=== PATIENT | female | born 1985 | race African-American/Black ===

== ENCOUNTER 2022-12-19 08:50 | Emergency (ER) | payer SELFPAY ==
[2022-12-19 09:05] VITALS: BP 124/82; PULSE 71; RESP 18; TEMP 98.6; BMI 26.6
[2022-12-19] MEDS ORDERED: ACETAMINOPHEN 325 MG TABLET (FP) PO ONE (10:32)
[2022-12-19] MEDS ORDERED: ACETAMINOPHEN 325 MG TABLET (FP) ONE (10:44)
[2022-12-19 11:30] LABS: BASO % 1.2 % (0-2.0); EOS % 1.1 % (0-4.5); HEMATOCRIT 32.5 % (32.4-45.2); HEMOGLOBIN 10.4 GM/dL (10.7-15.3); LYMPH % 32.6 % (8-40); MCH 25.5 pg (25.7-33.7); MEAN CELL VOLUME 79.5 fl (80-96); MEAN PLT VOLUME 8.6 fl (7.5-11.1); MONO % 9.7 % (3.8-10.2); NEUT % 55.4 % (42.8-82.8); PLATELET COUNT 190 10^3/uL (134-434); RBC 4.09 M/mm3 (3.60-5.2); RDW 15.6 % (11.6-15.6); WHITE BLOOD COUNT 7.2 K/mm3 (4.0-10.0)
[2022-12-19 11:50] LABS: CALCIUM 8.4 mg/dL (8.5-10.1)
[2022-12-19 11:51] LABS: ALBUMIN 3.5 g/dl (3.4-5.0); BLOOD UREA NITROGEN 14.8 mg/dL (7-18)
[2022-12-19 11:54] LABS: CREATININE 0.7 mg/dL (0.55-1.3)
[2022-12-19 11:55] LABS: BILIRUBIN,TOTAL 0.2 mg/dL (0.2-1); TOT PROT 7.3 g/dl (6.4-8.2)
== END 2022-12-19 13:00 | disposition home or self-care (01) ==
LOC: JER 08:50
DX: R07.89 Other chest pain (principal)
CPT/HCPCS: 36415; 71046-TC-FY; 80053; 84484; 85025; 93005; 93010; 99285-25